=== PATIENT | female | born 1965 | race Caucasian/White ===

== ENCOUNTER → 2017-09-14 | Outpatient (CLI) | payer BC | LOC: MC.RAD 12:53 | DX: Z12.31 Encounter for screening mammogram for malignant neoplasm of breast (principal) ==

== ENCOUNTER → 2019-06-20 | Outpatient (CLI) | payer BC | LOC: MC.RAD 12:58 | DX: Z12.31 Encounter for screening mammogram for malignant neoplasm of breast (principal); R92.0 Mammographic microcalcification found on diagnostic imaging of breast; N63.10 Unspecified lump in the right breast, unspecified quadrant ==

== ENCOUNTER → 2019-06-22 | Outpatient (CLI) | payer BC | LOC: MC.RAD 13:25 | DX: N60.01 Solitary cyst of right breast (principal); R92.0 Mammographic microcalcification found on diagnostic imaging of breast ==

== ENCOUNTER → 2019-06-28 | Outpatient (CLI) | payer BC | LOC: MC.RAD 09:56 | DX: R92.0 Mammographic microcalcification found on diagnostic imaging of breast (principal); Z98.82 Breast implant status | CPT/HCPCS: 30634 ==

== ENCOUNTER 2019-07-07 07:06 | Day surgery (SDC) | payer BC ==
[~2019-07-07] VITALS: Ht 160 cm; Wt 73.6 kg
[2019-07-07] MEDS ORDERED: HCTZ12.5TAB PO (08:40)
[2019-07-07] MEDS ORDERED: ZYRTEC 10MG10 MG PO (08:40)
[2019-07-07] MEDS ORDERED: VITAMIN C500 MG PO (08:41)
[2019-07-07 09:12] VITALS: BP 138/94; PULSE 76; TEMP 97.3
[2019-07-07 11:35] VITALS: BP 124/83; PULSE 75; TEMP 97.7
--- NOTE | 2019-07-07 11:35 | NUR ---
Pt returned via cart from PACU to bay 6. A&O. VSS-see flowsheet. brought to room to visit. Left breast surgical incision with julio set intact, no oozing or drainage noted. HON elevated. Pt requested pudding and diet coke. Denied pain, nausea. Side rails up and call light in reach.
[2019-07-07 11:50] VITALS: BP 142/84; PULSE 70
[2019-07-07 12:01] VITALS: TEMP 97.7
[2019-07-07 12:05] VITALS: BP 108/71; PULSE 74
[2019-07-07 12:20] VITALS: BP 154/83; PULSE 71
--- NOTE | 2019-07-07 12:55 | NUR ---
Pt tolerated pudding and soda. VS remain stable. Pt denies n/v or other complaints. IV removed from right hand without difficulty. Catheter tip intact and pressure dressing applied. Pt up to void and dressed for dc. Discharge teaching completed, pt and spouse verbalized understanding. Taken via wheelchair to private vehicle for dc home with spouse driving.
== END 2019-07-07 12:55 | disposition home or self-care (01) ==
LOC: SDCO 07:06
DX: D05.12 Intraductal carcinoma in situ of left breast (principal); I10 Essential (primary) hypertension; Z88.2 Allergy status to sulfonamides; Z79.51 Long term (current) use of inhaled steroids
CPT/HCPCS: J1100; J1885; J2250; J2405; J2704; J2795; J3010; J7120

== ENCOUNTER 2019-07-21 05:45 | Inpatient (IN) | payer BC ==
[~2019-07-21] VITALS: Ht 160 cm; Wt 75.0 kg
[~2019-07-21 05:45] MED LIST: HCTZ12.5TAB PO; VITAMIN C500 MG PO; ZYRTEC 10MG10 MG PO
[2019-07-21 06:15] LABS: BASO % 0.2 % (0.0-2.0); EOS % 0.2 % (0-4.0); GRAN # 12.1 (1.4-6.5); GRAN % 88.5 % (42.2-75.2); HEMATOCRIT 47.3 % (37.0-47.0); HEMOGLOBIN 15.8 g/dl (12.5-16.0); LYMPH # 1.2 (1.2-3.4); LYMPH % 8.6 % (20.0-51.0); MEAN CELL VOLUME 88 fl (80.0-100.0); MEAN CORPUSCULAR HEMOGLOBIN 29 pg (27.0-31.0); MEAN CORPUSCULAR HGB CONC 33 g/dl (33.0-37.0); MEAN PLATELET VOLUME 9.3 fl (7.4-10.4); MONO # 0.3 (0.1-0.6); MONO % 2.2 % (1.7-9.3); PLATELET COUNT 246 K/mm3 (130-400); RED BLOOD COUNT 5.38 M/mm3 (4.10-5.30); REDCELL DISTRIBUTION WIDTH-CV 12.7 % (11.5-14.5)
[2019-07-21 07:10] LABS: ALANINE AMINOTRANSFERASE 49 U/L (9-52); ALBUMIN 4.4 gm/dL (3.5-5.0); ALKALINE PHOSPHATASE 85 U/L (50-136); ANION GAP 15 mmol/L (7-16); AST,SGOT 28 U/L (15-37); BILIRUBIN,TOTAL 0.6 mg/dL (0.0-1.0); BLOOD UREA NITROGEN 15 mg/dL (7-17); CALCIUM 9.5 mg/dL (8.4-10.2); CARBON DIOXIDE 22 mmol/L (22-30); CHLORIDE 109 mmol/L (98-107); GLUCOSE 124 mg/dL (74-106); LIPASE 99 U/L (23-300); POTASSIUM 3.4 mmol/L (3.4-5.0); SODIUM 146 mmol/L (137-145); TOTAL PROTEIN 7.3 gm/dL (6.4-8.2)
[2019-07-21 07:22] LABS: TROPONIN-I < 0.012 ng/mL (0.000-0.035)
[2019-07-21 08:38] LABS: COLLECTION METHOD CLEAN CATCH
[2019-07-21 08:58] LABS: AMORPHOUS CRYSTAL Present /uL; MUCOUS Present /lpf; PH 7 (5-8); URINE APPEARANCE Turbid; URINE BACTERIA Occasional /hpf; URINE BILIRUBIN Negative (NEGATIVE); URINE BLOOD Negative (NEGATIVE); URINE COLOR Yellow; URINE GLUCOSE 1+ (NEGATIVE); URINE KETONE 1+ (NEGATIVE); URINE LEUKOCYTE ESTERASE Negative (NEGATIVE); URINE NITRATE Negative (NEGATIVE); URINE PROTEIN(semi-quant) Negative (NEGATIVE); URINE RBC None Seen /hpf; URINE UROBILINOGEN Negative (NEGATIVE)
[2019-07-21 13:35] VITALS: BP 129/82; PULSE 76; TEMP 98.2
[2019-07-21 13:37] VITALS: BP 129/82; PULSE 76; TEMP 98.2
[2019-07-21 17:10] VITALS: BP 138/76; PULSE 75; TEMP 98.1
[2019-07-21 17:25] VITALS: BP 138/73; PULSE 68
[2019-07-21 17:40] VITALS: BP 132/78; PULSE 74; TEMP 98.3
[2019-07-21 17:55] VITALS: BP 143/72; PULSE 78; TEMP 98
--- NOTE | 2019-07-21 18:11 | NUR ---
Discharge instructions reviewed with patient and spouse, verbalized understanding. Discharged via wheelchair to auto/home with family at 1810.
== END 2019-07-21 18:10 | disposition home or self-care (01) | DRG 419 ==
LOC: COL.ER 05:45 → INPTSU 09:14 → SURG 17:19
PROVIDERS: Emergency Medicine; ADMIT Surgery
PROC: 8E0W4CZ Robotic Assisted Procedure of Trunk Region, Percutaneous Endoscopic Approach (ICD-10-PCS; 2019-07-21)
PROC: 0FT44ZZ Resection of Gallbladder, Percutaneous Endoscopic Approach (ICD-10-PCS; principal; 2019-07-21 15:00)
DX: K80.00 Calculus of gallbladder with acute cholecystitis without obstruction (principal); I10 Essential (primary) hypertension; J30.2 Other seasonal allergic rhinitis; Z98.51 Tubal ligation status
CPT/HCPCS: J0690; J1100; J1885; J2270; J2405; J2543; J2704; J7030; J7120

== ENCOUNTER → 2020-06-26 | Outpatient (CLI) | payer BC | LOC: MC.RAD 12:22 | DX: Z12.31 Encounter for screening mammogram for malignant neoplasm of breast (principal); I10 Essential (primary) hypertension; Z98.82 Breast implant status; Z98.890 Other specified postprocedural states; Z92.3 Personal history of irradiation; Z80.3 Family history of malignant neoplasm of breast ==

== ENCOUNTER → 2023-09-29 | Outpatient (CLI) | payer BC | LOC: MC.RAD 10:41 | DX: N63.20 Unspecified lump in the left breast, unspecified quadrant (principal); Z98.890 Other specified postprocedural states ==

== ENCOUNTER 2024-03-31 12:41 | Emergency (ER) | payer BC ==
[~2024-03-31] VITALS: Ht 160 cm; Wt 65.9 kg
[2024-03-31 14:41] LABS: BASO % 0.3 % (0.0-2.0); EOS # 0.1 K/mm3 (0.0-0.7); EOS % 0.8 % (0.0-4.0); GRAN # 3.9 K/mm3 (1.4-6.5); GRAN % 64.2 % (42.2-75.2); HEMATOCRIT 48.2 % (37.0-47.0); HEMOGLOBIN 16.2 g/dl (12.5-16.0); LYMPH # 1.7 K/mm3 (1.2-3.4); LYMPH % 27.4 % (20.0-51.0); MEAN CELL VOLUME 88 fl (80.0-100.0); MEAN CORPUSCULAR HEMOGLOBIN 30 pg (27-31); MEAN CORPUSCULAR HGB CONC 34 g/dl (33.0-37.0); MEAN PLATELET VOLUME 8.8 fl (7.4-10.4); MONO # 0.4 K/mm3 (0.1-0.6); MONO % 7.1 % (1.7-9.3); PLATELET COUNT 190 K/mm3 (130-400); RED BLOOD COUNT 5.46 M/mm3 (4.10-5.30); REDCELL DISTRIBUTION WIDTH-CV 13.1 % (11.5-14.5)
[2024-03-31 14:59] LABS: ALBUMIN 4.3 g/dL (3.5-5.0); BILIRUBIN,TOTAL 0.5 mg/dL (0.2-1.2); CALCIUM 9.6 mg/dL (8.4-10.2); CREATININE, serum 0.78 mg/dL (0.57-1.11); MAGNESIUM 2.2 mg/dL (1.6-2.6); POTASSIUM 3.7 mEq/L (3.5-4.5); TOTAL PROTEIN 7.4 g/dl (6.2-8.1)
[2024-03-31 15:05] LABS: TROPONIN-I 0.021 ng/mL (0.00-0.033)
[2024-03-31 15:37] LABS: TSH w REFLEX 1.06 uIU/mL (0.350-4.940)
[2024-03-31 15:48] LABS: COLLECTION METHOD CLEAN CATCH
[2024-03-31 15:51] LABS: URINE APPEARANCE CLEAR (CLEAR/HAZY); URINE BLOOD NEGATIVE (NEGATIVE); URINE COLOR YELLOW (YELLOW); URINE GLUCOSE NEGATIVE (NEGATIVE); URINE KETONE NEGATIVE (NEGATIVE); URINE NITRATE NEGATIVE (NEGATIVE); URINE PROTEIN(semi-quant) NEGATIVE (NEGATIVE); URINE UROBILINOGEN 0.2 E.U/dL (0.2-1.0)
[2024-03-31 19:20] VITALS: BP 142/81; PULSE 69
== END 2024-03-31 19:30 | disposition home or self-care (01) ==
LOC: COL.ER 12:41
PROVIDERS: Emergency Medicine
DX: R42 Dizziness and giddiness (principal); R07.89 Other chest pain; Z85.3 Personal history of malignant neoplasm of breast